=== PATIENT | female | born 1985 | race Caucasian/White ===

== ENCOUNTER 2017-01-01 18:21 | Emergency (ER) | payer OTHER, BC ==
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
[2017-01-01 18:42] VITALS: BP 154/82; PULSE 81; RESP 18; TEMP 98.3; O2SAT 100; BMI 31.1
== END 2017-01-01 19:00 | disposition home or self-care (01) ==
LOC: ED 18:21 → MERGE 18:21 → ED 19:00
DX: Z77.21 Contact with and (suspected) exposure to potentially hazardous body fluids (principal)